=== PATIENT | male | born 1995 | race Caucasian/White ===

== ENCOUNTER 2017-01-19 20:30 | Emergency (ER) | payer SELFPAY ==
[~2017-01-19] VITALS: Ht 167.6 cm; Wt 72.8 kg
[2017-01-19 20:36] VITALS: TEMP 36.7; Ht 167.6 cm; Wt 72.8 kg
[2017-01-19] MEDS ORDERED: LIDO/EPINEPHRINE/SOD BICARB 20 ML VIAL INFIL ONE (20:45)
--- NOTE | 2017-01-19 20:49 | EMERGENCY ROOM VISIT NOTE ---
ED Visit Note First contact with patient: 20:39 CHIEF COMPLAINT: Right forearm laceration just prior to arrival HISTORY OF PRESENT ILLNESS: Patient is a [id number] 21-year-old male who presents the emergency department accompanied by friends for evaluation of a laceration to the right forearm that he sustained just prior to arrival. He was cooking with roommates in the kitchen and someone was holding and they've, they apparently turned into each other, causing the laceration described below. He notes a mild, burning, throbbing pain that he rates a 3/10. Bleeding has been controlled with pressure. He denies any numbness, tingling or weakness into the hand or fingers. REVIEW OF SYSTEMS: Review of systems as per HPI. All other systems reviewed were negative. At least 6 systems reviewed. PMH: Electronic medical records are reviewed and summarized as above/below. See Problem List. Patient's tetanus is up-to-date. SOCIAL HISTORY: Patient lives at home with roommates. He is employed. Positive tobacco use, denies alcohol use. PHYSICAL EXAM: Vital Signs: Reviewed Nurse's notes. There is a 4 cm long laceration on the dorsal aspect of the right forearm. The edges are gaping widely apart. There is no foreign material in the wound and it looks clean. There is no active bleeding. No deep structures such as tendons or nerves are seen in the base of the wound. EMERGENCY DEPARTMENT COURSE: Using sterile technique, saline and Betadine cleansing, and 1% lidocaine anesthesia, the laceration was repaired with 9, 5-0 nylon sutures. Patient tolerated the procedure well. There is no nerve, tendon or vascular injury. Laceration does not extend into the muscle belly of the forearm. Current/Historical Medications No Active Prescriptions or Reported Meds Allergies Coded Allergies: No Known Allergies (Unverified , 01/19/17) Vital Signs Date Time Temp Pulse Resp B/P Pulse Ox O2 Delivery O2 Flow Rate FiO2 01/19/17 20:36 36.7 72 18 138/84 100 Room Air Medications Administered Medications (Trade) Dose Ordered Sig/Tara Route Start Time Stop Time Status Last Admin Dose Admin Lidocaine/ Epinephrine (Buffered Xylocaine/ Epinephrine 1% Inj) 20 ml NOW ONCE INFIL 01/19/17 20:45 01/19/17 20:46 DC 01/19/17 20:45 20 ML Departure Information Impression Primary Impression: Laceration of forearm Prescriptions No Active Prescriptions or Reported Meds Referrals No Doctor, Assigned (PCP) Patient Instructions My [facility] Additional Instructions Keep wound clean and dry. Do not allow any crusting or dried blood to accumulate on sutures. If this occurs, use a 1:1 solution of hydrogen peroxide/ water on a Q-tip to clean the wound. Use an antibiotic ointment for 3-4 days, then let wound dry. Suture removal in 12-14 days. Return sooner for any signs of infection (increasing redness, swelling, drainage). Ice and elevate for swelling and pain. Ibuprofen 600 mg and Tylenol 1000 mg every 6 hrs for pain.
[2017-01-19 21:26] VITALS: BP 114/58; PULSE 78; O2SAT 100
== END 2017-01-19 21:26 | disposition home or self-care (01) ==
LOC: C.EDB 20:31 → C.EDD 21:26
DX: S51.811A Laceration without foreign body of right forearm, initial encounter (principal); X58.XXXA Exposure to other specified factors, initial encounter; F17.200 Nicotine dependence, unspecified, uncomplicated

== ENCOUNTER 2017-02-03 15:07 | Emergency (ER) | payer SELFPAY ==
[~2017-02-03] VITALS: Ht 162.6 cm; Wt 72.7 kg
[2017-02-03 15:12] VITALS: BP 125/65; PULSE 66; TEMP 37.1; O2SAT 99; Ht 162.6 cm; Wt 72.7 kg
--- NOTE | 2017-02-04 00:23 | EMERGENCY ROOM VISIT NOTE ---
ED Visit Note First contact with patient: 15:15 CHIEF COMPLAINT: Suture removal. HISTORY OF PRESENT ILLNESS: Mr. Rousseau is a 21-year-old male who ambulates into the ED accompanied by female friend requesting suture removal. It should be noted that the patient's primary language is Frisian and his female friend interprets for him. It is reported that the patient sustained a laceration for 15 days ago and presented to the ED for sutures. Since being discharge she feels like the wound is healing well and has not observed any signs of infection and currently has no complaints of pain, swelling, redness, or drainage from the wound. PHYSICAL EXAM: Vital Signs: Date Time Temp Pulse Resp B/P Pulse Ox O2 Delivery O2 Flow Rate FiO2 02/03/17 15:12 37.1 66 18 125/65 99 Room Air General: 21-year-old male in no acute distress, nontoxic-appearing, afebrile and hemodynamically stable. Neurological: Awake, alert and oriented 3. Answering questions appropriately and following commands. Right forearm: Clean dry and intact wound on the posterior area without signs of infection (erythema, swelling, tenderness, purulent drainage) ED COURSE: Patient is assessed as noted above 9 sutures were removed without any difficulty and there was no separation of the wound edges. Patient's load out worker was educated about today's findings and instructed the patient on his discharge instructions. DISPOSITION: Patient discharged home in stable condition. CLINICAL IMPRESSION: Suture removal; Well healing laceration. PLAN: Continue to wash the wound with soap and water watch for signs of infection. After washing cover with a small amount of antibiotic ointment and cover with a bandage. Follow-up with PCP or return to the ED for any signs of infection or any new/ concerning symptoms.
== END 2017-02-03 15:39 | disposition home or self-care (01) ==
LOC: C.EDB 15:08 → C.EDD 15:39
DX: Z48.02 Encounter for removal of sutures (principal)